=== PATIENT | male | born 1985 | race African-American/Black ===

== ENCOUNTER 2017-06-27 07:56 | Emergency (ER) | payer SELFPAY ==
[2017-06-27] MEDS: BUPIVACAINE MPF 0.5% 30 ML VIAL. SQ ONE (08:25)
[2017-06-27] MEDS ORDERED: AMOXICILLIN/K CLAV 875/125MG TABLET. PO ONE (08:30)
[2017-06-27] MEDS ORDERED: SULF1TAB24 PO (08:45)
--- NOTE | 2017-06-27 08:45 | PHYS DOC ---
Adult General Chief Complaint Chief Complaint: SKIN PROBLEM HPI HPI Patient is a 31 year old M who presents with painful R 4th finger tip. He has had a previous infection in this finger with similar symptoms. He notes swelling redness pain and increased temperature at the end of the fourth finger on the right hand. He details cars for living. Review of Systems Review of Systems Constitutional: Denies fever or chills [] Eyes: Denies change in visual acuity, redness, or eye pain [] HENT: Denies nasal congestion or sore throat [] Respiratory: Denies cough or shortness of breath [] Cardiovascular: No additional information not addressed in HPI [] GI: Denies abdominal pain, nausea, vomiting, bloody stools or diarrhea [] : Denies dysuria or hematuria [] Musculoskeletal: Denies back pain or joint pain [] Integument: Negative except history of present illness Neurologic: Denies headache, focal weakness or sensory changes [] Endocrine: Denies polyuria or polydipsia [] Family History Family History Noncontributory Current Medications Current Medications None Allergies Allergies Allergies Coded Allergies Type Severity Reaction Last Updated Verified No Known Drug Allergies 06/27/17 No Physical Exam Physical Exam Constitutional: Well developed, well nourished, no acute distress, non-toxic appearance. [] HENT: Normocephalic, atraumatic, bilateral external ears normal, oropharynx moist, no oral exudates, nose normal. [] Eyes: EOMI, conjunctiva normal, no discharge. [] Cardiovascular:Heart rate regular rhythm, no murmur [] Lungs & Thorax: Bilateral breath sounds clear to auscultation [] Skin: Distal Left third finger mild to moderate erythema, edema or warmth and tenderness to palpation not extending more proximally than the DIP Extremities: No tenderness, no cyanosis, no clubbing, ROM intact, no edema. [] Neurologic: Alert and oriented X 3, normal motor function, normal sensory function, no focal deficits noted. [] Psychologic: Affect normal, judgement normal, mood normal. [] Current Patient Data Vital Signs Vital signs within normal limits please refer to nursing documentation for specifics Radiology/Procedures Radiology/Procedures Incision and drainage was performed. Prior to the procedure verbal consent was obtained explaining risks benefits and alternatives. Risks include poor wound healing damage to surrounding tissues and permanent disability. Benefits include possible aspiration of abscess decreasing healing time and adverse events. Alternatives include oral antibiotics with close observation. Maycol demonstrated verbal understanding 1 mL bupivacaine 0.5% was injected at the base of the left third finger after using alcohol wipes to sterilize the area. An 18-gauge needle was used to make one injection on the distal lateral side of the nail with only blood return. No pus was noted. No additional injection sites were attempted. The patient was started on oral antibiotics and was given a prescription. Strong return cautions were given including worsening signs and symptoms and/or no improvement in 2-3 days Course & Med Decision Making Course & Med Decision Making Pertinent Labs and Imaging studies reviewed. (See chart for details) [] Dragon Disclaimer Dragon Disclaimer This chart was dictated in whole or in part using Voice Recognition software in a busy, high-work load, and often noisy Emergency Department environment. It may contain unintended and wholly unrecognized errors or omissions. Departure Departure: Impression: Primary Impression: Cellulitis of left finger Disposition: 01 HOME, SELF-CARE Condition: STABLE Referrals: PCPHARRIET (PCP) Patient Instructions: Cellulitis Additional Instructions: Andres was seen in the emergency department for finger pain. No emergency medical condition was found on history or physical exam. His pain was managed and he was started on oral antibiotics. His wound is attempted to be drained but no pus was found. He was given a prescription to continue oral antibiotics over the next 7 days. He was also advised follow-up with his primary care doctor in the next 5-7 days for further management. He was advised to return to the emergency department if he develops new or worsening symptoms. Scripts Sulfamethoxazole/Trimethoprim (BACTRIM DS TABLET) 1 Each Tablet 1 TAB PO BID for 7 Days, #14 TAB Prov: PATRICE LANG MD 06/27/17 PATRICE LANG MD Jun 27, 2017 08:45
[2017-06-27 08:53] VITALS: BP 136/78
[2017-06-28] MEDS ORDERED: HYDR-971 PO (03:34)
== END 2017-06-27 08:53 | disposition home or self-care (01) ==
LOC: ER 07:56
DX: L03.012 Cellulitis of left finger (principal)
CPT/HCPCS: 10060; 99283; J3490; 10160; 99284-25

== ENCOUNTER 2017-06-28 02:22 | Emergency (ER) | payer SELFPAY ==
[~2017-06-28 02:22] MED LIST: SULF1TAB24 PO
[2017-06-28 02:34] VITALS: BP 153/79
[2017-06-28] MEDS ORDERED: cefTRIAXone SODIUM 1 GM VIAL IV ONE (03:15)
[2017-06-28] MEDS ORDERED: KETOROLAC 60 MG/2 ML VIAL. IM ONE (03:30)
[2017-06-28] MEDS ORDERED: cefTRIAXone IM 1 GM VIAL IM ONE (03:30)
[2017-06-28] MEDS ORDERED: HYDR-971 PO (03:34)
--- NOTE | 2017-06-28 03:40 | PHYS DOC ---
General Chief Complaint: HAND PROBLEM Stated Complaint: LEFT HAND PAIN Time Seen by MD: 02:48 Source: patient Exam Limitations: no limitations Problems: History of Present Illness Initial Comments Patient is a 31-year-old male who comes to the emergency department with left third finger pain. Patient was seen here yesterday morning for paronychia of the left third finger , in attempt to I and D was unsuccessful insomuch as only blood was expressed. The patient was discharged home with a prescription for Bactrim. The patient states that he doesn't have money and can't get any prescriptions filled and he is calm to the emergency department complaining of worsening pain and swelling. Denies fever chills sweats or body aches. He has no measured fever here in the emergency department and his heart rate is normal. Pain is described as throbbing and severe worse with manipulation better with rest. Patient continues to smoke cigarettes. Onset: yesterday Severity: severe Pain/Injury Location: left 3rd finger Method of Injury: unknown Modifying Factors: worse with jarring, worse with movement, improves with rest Allergies: Coded Allergies: No Known Drug Allergies (Unverified , 06/27/17) Past Medical History Medical History: no pertinent history Surgical History: noncontributory Social History Smoker: cigarettes Alcohol: occasionally Drugs: none Review of Systems Constitutional: denies chills, denies fever Respiratory: denies cough, denies shortness of breath Cardiovascular: denies chest pain, denies palpitations Gastrointestinal: denies nausea, denies vomiting Musculoskeletal: see HPI Skin: see HPI Physical Exam General Appearance: WD/WN, moderate distress Neck: non-tender, supple Cardiovascular/Respiratory: normal peripheral pulses, no respiratory distress Hand: swelling (right third finger with paronychia and mild cellulitis not extending to the DIP, no purulence or fluctuance ligaments and tendons are intact extremity is neurovascularly intact) Neurologic/Tendon: normal sensation, normal motor functions, normal tendon functions, responds to pain, no evidence tendon injury Psychiatric: alert, oriented x 3 Skin: warm/dry (left third finger as above) Orders, Labs, Meds RN performed a digital block (see nurse's notes) with some analgesia. I discussed smoking cessation. I discussed the need to fill prescription for antibiotics for resolution of this condition. Departure Time of Disposition: 03:38 Disposition: 01 HOME, SELF-CARE Diagnosis: paronychia left third finger, tobaccoism Condition: STABLE Patient Instructions: Paronychia, [id number], Smoking, You Can Quit, Easy-to- Read Additional Instructions: Smoking impairs the immune system and wound healing you are advised stop smoking immediately. Warm compresses 4 times daily. [id number] ibuprofen for baseline pain. Prescription: [place] 5 mg quantity 20 A Tylenol 3 starter pack was dispensed to you, take 1-2 every 6 hours as needed for discomfort. You must fill the Bactrim DS prescription for resolution of this condition. Follow-up with your doctor in 3-5 days if no better. Return to ED with new or changing symptoms. NATALYA BAILEY DO Jun 28, 2017 03:40
[2017-06-28] MEDS ORDERED: ACETAMINOPHEN/CODEINE 300/30MG 4TABLET STARTPACK. PO ONE (04:00)
== END 2017-06-28 03:48 | disposition home or self-care (01) ==
LOC: ER 02:22
DX: L03.012 Cellulitis of left finger (principal); F17.210 Nicotine dependence, cigarettes, uncomplicated
CPT/HCPCS: 64450; 96372; 99284; J0696; J1885